=== PATIENT | female | born 1965 | race Caucasian/White ===

== ENCOUNTER → 2020-03-28 12:22 | Outpatient (CLI) | payer OTHER, SELFPAY ==
--- NOTE | ~2020-03-28 | MR_ITS ---
EXAMINATION: MR shoulder RT w con DATE: 03/28/2020 14:03 INDICATION: Injury of glenoid labrum. TECHNIQUE: Magnetic resonance imaging (MRI) of the right shoulder was performed without intravenous c ontrast after intra-articular injection of contrast (MR arthrogram). Sequences included axial T1-weig hted FS FSE and T2-weighted FS FSE, coronal-oblique T1-weighted FS FSE and T2-weighted FS FSE, sagitt al-oblique T1-weighted FSE and T2-weighed FS FSE, and ABER T1-weighted FS FSE. COMPARISON: None. FINDINGS: Coracoacromial arch: The acromion undersurface is curved in morphology (type II). There is mild acromioclavicular joint os teoarthritis. There is contrast in the subacromial/subdeltoid bursa. Rotator cuff: There is a full-thickness tear of supraspinatus tendon measuring 11 mm anterior to posterior by 9 mm proximal to distal. There is mild infraspinatus tendinopathy. Teres minor tendon is normal. There is moderate subscapularis tendinopathy. There is a small interstitial tear of distal subscapularis tendo n. Biceps tendon and glenoid labrum: Biceps tendon is in bicipital groove. Intra-articular biceps tendon is normal. There is a tear of sup erior labrum from 10:00 to 12:00 (SLAP tear). Fluid: The glenohumeral joint is well distended by contrast. Bones/cartilage: Glenoid cartilage is normal. Humeral head cartilage is normal. IMPRESSION: 1. Full-thickness rotator cuff tear. 2. SLAP tear. 3. Mild acromioclavicular joint osteoarthritis. Reviewed, dictated and finalized at location A.
--- NOTE | ~2020-03-28 | XR_ITS ---
EXAMINATION: XR fl inj shoulder RT - MR/CT EXAM DATE: 03/28/2020 13:32 INDICATION: Right shoulder pain radiating down arm. TECHNIQUE: A time-out was performed to verify the patient's name, date of , and procedure to b e performed. The procedure including the risks, benefits and alternatives were discussed with the pat ient. Risks discussed included bleeding and infection. The patient understood the risks and agreed to proceed. The skin overlying the right shoulder joint was prepped and draped in usual sterile fashion . Anesthetic was administered with 2 milliliters 1% lidocaine subcutaneously. A 22 G needle was adv anced under fluoroscopic guidance into the joint. A total of 12 mL of 1:200 of 529 mg/mL Multihance, 1:4 lidocaine, and 1:4 Omnipaque 240 was instilled. The needle was removed and the entry site was cleaned and dressed. There were no immediate complications. The DAP for this procedure was 0.1 Gycm 2. The procedure was performed on 03/28/2020. FINDINGS: Real-time fluoroscopy demonstrates the needle and contrast in the right shoulder joint. IMPRESSION: Successful right shoulder joint injection. Reviewed, dictated and finalized at location B.
== END ==
PROVIDERS: Visit Provider Internal Medicine
DX: S43.431A Superior glenoid labrum lesion of right shoulder, initial encounter (principal); X58.XXXA Exposure to other specified factors, initial encounter; M19.011 Primary osteoarthritis, right shoulder; M75.101 Unspecified rotator cuff tear or rupture of right shoulder, not specified as traumatic
CPT/HCPCS: 23350; 73222; 77002; A9577; Q9966

== ENCOUNTER 2020-08-26 15:52 | Outpatient (CLI) | payer OTHER, SELFPAY ==
--- NOTE | ~2020-08-26 | MM_ITS ---
EXAMINATION: MM screening [facility] BI w luz maria HISTORY: Screening mammogram TECHNIQUE: Craniocaudal and mediolateral oblique 3-D tomosynthesis images were obtained and synthetic 2-D images were generated. CAD analysis was submitted and interpreted. COMPARISON: 06/13/2019, 06/05/2019, 01/18/2019 BREAST PARENCHYMAL COMPOSITION: The breasts are heterogeneously dense, which may obscure small masses . FINDINGS: There is no evidence of suspicious mass, calcification, or architectural distortion to sugg est malignancy in either breast. There has been no suspicious interval change. IMPRESSION: 1. No mammographic evidence of malignancy. 2. Recommend routine screening mammography in one year. BI-RADS Category 1: Negative Reviewed, dictated and finalized at location A. RVISOR SEWER MAINTENANCE
== END 2020-08-26 15:53 | disposition home or self-care (01) ==
LOC: ANHIMG 15:55
PROVIDERS: Visit Provider Obstetrics & Gynecology
DX: Z12.31 Encounter for screening mammogram for malignant neoplasm of breast (principal)
CPT/HCPCS: 77063; 77067

== ENCOUNTER 2021-10-08 16:40 | Outpatient (CLI) | payer OTHER, SELFPAY ==
--- NOTE | ~2021-10-08 | MM_ITS ---
EXAMINATION: MM screening [facility] BI w luz maria HISTORY: Screening TECHNIQUE: Craniocaudal and mediolateral oblique 3-D tomosynthesis images were obtained and synthetic 2-D images were generated. CAD analysis was submitted and interpreted. COMPARISON: Comparison to multiple prior studies sequentially, with oldest reviewed study dated 01/18. BREAST PARENCHYMAL COMPOSITION: The breasts are extremely dense, which lowers the sensitivity of mamm ography FINDINGS: There is no evidence of suspicious mass, calcification, or architectural distortion to sugg est malignancy in either breast. There has been no suspicious interval change. IMPRESSION: 1. No mammographic evidence of malignancy. 2. Recommend routine screening mammography in one year. BI-RADS Category 1: Negative Reviewed, dictated and finalized at location A.
== END 2021-10-08 16:41 | disposition home or self-care (01) ==
LOC: ANHIMG 16:41
PROVIDERS: PCP Family Medicine; Visit Provider Obstetrics & Gynecology
DX: Z12.31 Encounter for screening mammogram for malignant neoplasm of breast (principal)
CPT/HCPCS: 77063; 77067

== ENCOUNTER 2022-08-09 11:13 | Day surgery (SDC) | payer OTHER, SELFPAY ==
[2022-07-29 09:00] VITALS: BMI 23.8
--- NOTE | 2022-08-06 14:35 | P.HP_ITS ---
History of Present Illness History of Present Illness Consent: Risks, benefits, and alternatives have been discussed and questions answered. Patient agrees to proceed with procedure. Chief complaint: Neoplasm Screening Narrative: [place] is a 57 year old female referred for colon cancer screening. Her last colonoscopy was about 5 years ago. Reportedly the prep was not optimal. Review of Systems 2 Review of Systems: All systems reviewed & are unremarkable except as noted in HPI and below PMFSH Surgical History Surgical History History of appendectomy History of hysterectomy History of tonsillectomy Social History Social History Smoking status: Never smoker Alcohol intake: current Drinks per week: 8 Alcohol use details: 3-5 TIMES PER WEEK Substance use: never Substance use type: does not use Living arrangements: with family Spiritual care concerns: No Meds Home Medications and Allergies Home Medications Medication Instructions Recorded Confirmed Type ascorbic acid (vitamin C) 25 mg 25 mg PO DAILY 07/29/22 08/09/22 History tablet calcium-vitamin D3 250 mg-50 unit 1 tablet PO DAILY 07/29/22 08/09/22 History tablet estradiol 1 mg tablet 1 mg PO HS 07/29/22 08/09/22 History meloxicam 15 mg tablet 15 mg PO HS 07/29/22 08/09/22 History multivit,stress formula-zinc tablet 1 tablet PO DAILY 07/29/22 08/09/22 History Allergies Allergy/AdvReac Type Severity Reaction Status Date / Time Penicillins Allergy Unknown RASH Verified 08/09/22 11:36 CHILD Exam Resp: Auscultation: clear to auscultation bilaterally Cardio: Rate: regular rate Rhythm: regular rhythm GI: GI Palp: Yes Soft to palpation and No Tenderness to palpation present (GI) Assessment and Plan Assessment and plan (1) Colon cancer screening: Code(s): Z12.11 - Encounter for screening for malignant neoplasm of colon Status: Acute Assessment and Plan: Colonoscopy with possible biopsy or polypectomy or cautery or injection of substances.
--- NOTE | 2022-08-09 07:27 | P.PNAN_ITS ---
Anes - Initial Pre Proc Eval Procedure: Operation Date: 08/09/22 13:00 Proposed Procedures p Screening Colonoscopy - Celestino Ledesma MD Date/Time: 08/09/22 07:27 Surgeon: Celestino Ledesma MD Pre Op Diagnosis: Neoplasm Screening Patient Data Age: 57 Gender: F Height: 1.68 m Weight: 67 kg Allergies Allergy/AdvReac Type Severity Reaction Status Date / Time Penicillins Allergy Unknown RASH Verified 08/09/22 11:36 CHILD Home Medications Medication Instructions Recorded Confirmed Type ascorbic acid (vitamin C) 25 mg 25 mg PO DAILY 07/29/22 08/09/22 History tablet calcium-vitamin D3 250 mg-50 unit 1 tablet PO DAILY 07/29/22 08/09/22 History tablet estradiol 1 mg tablet 1 mg PO HS 07/29/22 08/09/22 History meloxicam 15 mg tablet 15 mg PO HS 07/29/22 08/09/22 History multivit,stress formula-zinc tablet 1 tablet PO DAILY 07/29/22 08/09/22 History Patient hx anesthesia problems: none Family hx anesthesia problems: none Results Review: All pre-operative results and documents have been reviewed as part of the pre- operative evaluation. [facility] Surgical History Surgical History (Updated 08/09/22 @ 07:28 by Allan Briscoe DO) History of appendectomy History of hysterectomy History of tonsillectomy Social History Social History Smoking status: Never smoker Alcohol intake: current Drinks per week: 8 Alcohol use details: 3-5 TIMES PER WEEK Substance use: never Substance use type: does not use Living arrangements: with family Spiritual care concerns: No Anes - Eval Final PreProcedure Day of Procedure 08/09/22 07:27 Patient weight: normal Heart: regular rate and rhythm Lungs: clear to auscultation and normal air movement Airway: Mallampati scale class II Neurological: alert and oriented Last oral intake: >/= 8 hours ASA classification: II Emergent: no Anesthetic plan: proceed Anesthesia type and monitoring: general GIVS and standard monitoring Results Review: All pre-operative results and documents have been reviewed as part of the pre- operative evaluation. Informed Consent: The patient's anesthetic plan and its attendant risks and benefits were discussed with the patient/family/POA. Questions were solicited and answers provided to the satisfaction of the patient/family/POA.
[2022-08-09 11:37] VITALS: BP 116/79; PULSE 78; RESP 16; TEMP 37.2; O2SAT 99
[2022-08-09] MEDS: LACTATED RINGERS 1,000 ML 150 ML IV CONT (11:46)
[2022-08-09 13:55] VITALS: BP 95/60; PULSE 68; RESP 16; O2SAT 99
[2022-08-09 14:05] VITALS: BP 111/69; PULSE 60; RESP 15; O2SAT 99
[2022-08-09 14:15] VITALS: BP 111/86; PULSE 71; RESP 16; O2SAT 100
--- NOTE | 2022-08-09 14:23 | WPDANESPN ---
Anes - Prog Note Post-Op Date/Time: 08/09/22 14:23 Cardiovascular status: normal Respiratory status: normal Airway patency: baseline Mental status: baseline Post-Op hydration status: normal Vital Signs: Last Vital Signs Temp 37.2 C 08/09/22 11:37 Pulse 60 08/09/22 14:05 Resp 15 08/09/22 14:05 BP 111/69 08/09/22 14:05 Pulse Ox 99 08/09/22 14:05 O2 Del Method Room Air 08/09/22 14:05 Pain Score (VAS): 0 I/O: Intake & Output 08/08/22 08/09/22 08/09/22 23:59 07:59 15:59 Intake Total 500 Balance 500 Post-procedural complaints: none Patient Feedback: Patient satisfied with anesthetic care. Other Findings: Patient vital signs back to baseline. Patient denies nausea and vomiting. Patient's pain under control. Patient OK for discharge.
== END 2022-08-09 14:30 | disposition home or self-care (01) ==
PROVIDERS: PCP Family Medicine; Visit Provider Internal Medicine Gastroenterology
PROC: 0DJD8ZZ Inspection of Lower Intestinal Tract, Via Natural or Artificial Opening Endoscopic (ICD-10-PCS; CPT 45378; principal; 2022-08-09 13:00)
DX: Z12.11 Encounter for screening for malignant neoplasm of colon (principal)
CPT/HCPCS: 45378

== ENCOUNTER 2022-12-13 15:47 | Outpatient (CLI) | payer OTHER, SELFPAY ==
--- NOTE | ~2022-12-13 | MM_ITS ---
EXAMINATION: MM screening [facility] BI w luz maria HISTORY: Screening mammogram TECHNIQUE: Craniocaudal and mediolateral oblique 3-D tomosynthesis images were obtained and synthetic 2-D images were generated. CAD analysis was submitted and interpreted. COMPARISON: October 08, 2021, August 26, 2020 bilateral screening mammogram examinations BREAST PARENCHYMAL COMPOSITION: The breasts are heterogeneously dense, which may obscure small masses . FINDINGS: There is a biopsy marker on the right; history of prior benign right breast biopsy. There i s no evidence of suspicious mass, calcification, or architectural distortion to suggest malignancy in either breast. There has been no suspicious interval change. IMPRESSION: 1. No mammographic evidence of malignancy. 2. Recommend routine screening mammography in one year. BI-RADS Category 1: Negative Reviewed, dictated and finalized at location A.
== END 2022-12-13 15:48 | disposition home or self-care (01) ==
LOC: ANHIMG 15:50
PROVIDERS: PCP Family Medicine; Visit Provider Obstetrics & Gynecology
DX: Z12.31 Encounter for screening mammogram for malignant neoplasm of breast (principal)
CPT/HCPCS: 77063; 77067

== ENCOUNTER 2024-08-11 08:16 | Outpatient (CLI) | payer OTHER, SELFPAY ==
--- NOTE | ~2024-08-11 | MM_ITS ---
EXAMINATION: MM screening [facility] BI w luz maria HISTORY: Screening TECHNIQUE: Craniocaudal and mediolateral oblique 3-D tomosynthesis images were obtained and synthetic 2-D images were generated. CAD analysis was submitted and interpreted. COMPARISON: Comparison to multiple prior studies sequentially, with oldest reviewed study dated 01/18. BREAST PARENCHYMAL COMPOSITION: Dense: The breasts are heterogeneously dense, which may obscure small masses FINDINGS: There is no evidence of suspicious mass, calcification, or architectural distortion to sugg est malignancy in either breast. There has been no suspicious interval change. IMPRESSION: 1. No mammographic evidence of malignancy. 2. Recommend routine screening mammography in one year. BI-RADS Category 1: Negative Reviewed, dictated and finalized at location B. E FINISHER
--- OUTSIDE RECORDS SUMMARY | 2024-08-11 08:19 | XMS_ITS | Clinical Summary ---
Author Organization [facility] Address [address] [place] [address] Care Team Providers Care Load Manager Name Role Phone Chito Cohen MD Primary Care Provider [phone] Bree Vaughan Unavailable [phone] Allergies Active Allergy Reactions Criticality Noted Date Comments Penicillin G Rash Medium 08/16/2013 Childhood rxn Medications estradiol (ESTRACE) 1 mg tablet 06/24/2019 Active meloxicam (MOBIC) 15 mg tablet 06/24/2019 Active glucosamine-cho ndroitin 250-200 mg tablet Take by mouth Active cholecalciferol (VITAMIN D-3) 2000 unit capsule Take 1 capsule (2,000 Units total) by mouth daily 30 capsule 04/11/2020 Active valACYclovir (VALTREX) 1 gram tablet 09/15/2020 Active Active Problems Problem Noted Date Diagnosed Date History of repair of right rotator cuff 07/10/19 21 Abnormal findings on diagnostic imaging of breas t 06/28/2019 Resolved Problems Problem Noted Date Diagnosed Date Resolved Date Biceps tendinitis on right 04/10/2020 0 07/10/2020 Overview (04/10/2020): Added automatically from request for surgery [id number] Complete tear of right rotator cuff 04/04/2020 07/10/2020 Superior glenoid labrum lesi on of right shoulder 04/04/2020 07/10/2020 Biceps tendinitis of right upper extremity 04/04/2020 07/10/2020 Impingement syndrome of right shoulder 04/04/2020 07/10/2020 Surgical History Surgery Date Site/Laterality Comments HYSTERECTOMY ABLATION 07/04/2010 - 07/03/2011 UTERINE SUSPENSION 07/04/1987 - 07/03/1988 BREAST BIOPSY 07/18/2019 Right TONSILLECTOMY Medical History Medical History Date Comments Arthritis Osteoarthritis Infectious viral hepatitis Family History Medical History Relation Name Comments Pancreatic cancer Father Arthritis Other Lung cancer Paternal Grandfather Relation Name Status Comments Father Other Paternal Grandfather Social History Tobacco Use Types Packs/Day Years Used Date Smoking Tobacco: Never Smokeless Tobacco: Never Alcohol Use Standard Drinks/Week Comments Yes 0 (1 standard drink = 0.6 oz pur e alcohol) Comments No Sex and Gender Information Value Date Recorded Sex Assigned at Not on file 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 Gender Identity Not on file Sexual Orientation Not on file Obstetrics History Last Filed Vital Signs Vital Sign Reading Time Taken Comments Blood Pressure 121/84 11/11/2020 8:47 AM CDT Pulse 75 11/11/2020 8:47 AM CDT Temperature 36.6 C (97.9 F) 10/09/2020 8:38 AM CDT Respiratory Rate 18 04/15/2020 1:27 PM CDT Oxygen Saturation 99% 04/15/2020 1:27 PM CDT Inhaled Oxygen Concentration - - Weight 68.9 kg (152 lb) 11/11/2020 8:47 AM CDT Height 168.9 cm (5' 6.5 ) 11/11/2020 8:47 AM CDT Body Mass Index 24.17 11/11/2020 8:47 AM CDT Plan of Treatment Not on file Medical Devices Implanted Type Area Apple Packing Header Device Identifier Shelf Expiration Date Model / Serial / Lot [employer] Ar-2324bcc Swivelock C 4.75mm 19.1mm Closed Eyelet Vent [place] Suture - [id number] Implanted:Qty: 1 on 04/15/2020 by Bryan Jaramillo MD at [facility] Right: Shoulder [employer] 01/01/2024 AR-2324BCC / / [id number] [employer] Ar-3633 Arthrex Fibertak Tape 3 Load Rotator Cuff [place] Suture Sterile Latex Free - [id number] Implanted:Qty: 1 on 04/15/2020 by Bryan Jaramillo MD at [facility] Right: Shoulder [employer] 10/31/2024 AR-3633 / / [id number] [employer] Ar-2324bcc Swivelock C 4.75mm 19.1mm Closed Eyelet Vent [place] Suture - [id number] Implanted:Qty: 1 on 04/15/2020 by Bryan Jaramillo MD at [facility] Right: Shoulder [employer] 01/01/2024 AR-2324BCC / / [id number] [employer] Ar-7535 Fiberlink Arthrex Suturetape 1.3mm Tape Suture Nonabsorbable - [id number] Implanted:Qty: 1 on 04/15/2020 by Bryan Jaramillo MD at [facility] Right: Shoulder [employer] 10/01/2024 AR-7535 / / [id number] Insurance [place] [id number] Care Teams Load Manager Relationship Specialty Start Date End Date Chito Cohen MD [address] [place] [address] PCP - General Family Medicine 06/13/19 Bree Vaughan PA [address] [place] [address] Physician Baggage Checker Orthopedic Surgery 04/15/20
--- OUTSIDE RECORDS SUMMARY | 2024-08-11 08:19 | XMS_ITS | Referral Summary ---
Author Organization [facility] Address [address] [place] [address] Care Team Providers Care Broke Beater Machine Operator Name Role Phone Chito Cohen MD Primary Care Provider [phone] Bree Vaughan Unavailable [phone] Allergies Active Allergy Reactions Criticality Noted Date [...] (04/10/2020): Added automatically from request for surgery [id number] Complete tear of right rotator cuff 04/04/2020 07/10/2020 Superior glenoid labrum lesi on of right shoulder 04/04/2020 07/10/2020 Biceps tendinitis of right upper extremity 04/04/2020 07/10/2020 Impingement syndrome of right shoulder 04/04/2020 07/10/2020 Social History Tobacco Use Types Packs/Day Years Used Date Smoking Tobacco: Never Smokeless Tobacco: Never Alcohol Use Standard Drinks/Week Comments Yes 0 (1 standard drink = 0.6 oz pur e alcohol) Comments No Sex and Gender Information Value Date Recorded Sex Assigned at Not on file 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 Gender Identity Not on file Sexual Orientation Not on file Last Filed Vital Signs Vital Sign Reading [...] on file Medical Devices Implanted Type Area Heel Lift Gouger Device Identifier Shelf Expiration Date Model / Serial / Lot [employer] Ar-2324bcc Swivelock C 4.75mm 19.1mm Closed Eyelet Vent [place] Suture - [id number] Implanted:Qty: 1 on 04/15/2020 by Bryan Jaramillo MD at [facility] Right: Shoulder [employer] 01/01/2024 AR-2324BCC / / [id number] [employer] Ar-3633 Arthrex Fibertak Tape 3 Load Rotator Cuff [place] Suture Sterile Latex Free - [id number] Implanted:Qty: 1 on 04/15/2020 by Bryan Jaramillo MD at [facility] Right: Shoulder [employer] 10/31/2024 AR-3633 / / [id number] [employer] Ar-2324bcc Swivelock C 4.75mm 19.1mm Closed Eyelet Vent [place] Suture - [id number] Implanted:Qty: 1 on 04/15/2020 by Bryan Jaramillo MD at [facility] Right: Shoulder [employer] 01/01/2024 AR-2324BCC / / [id number] [employer] Ar-7535 Fiberlink Arthrex Suturetape 1.3mm Tape Suture Nonabsorbable - [id number] Implanted:Qty: 1 on 04/15/2020 by Bryan Jaramillo MD at [facility] Right: Shoulder [employer] 10/01/2024 AR-7535 / / [id number] Insurance CHOICE PLUS Care Teams Broke Beater Machine Operator Relationship Specialty Start Date End Date Chito Cohen MD [address] [place] [address] PCP - General Family Medicine 06/13/19 Bree Vaughan PA [address] [place] [address] Physician Professional Security Officer Orthopedic Surgery 04/15/20
== END 2024-08-11 08:17 | disposition home or self-care (01) ==
LOC: ANHIMG 08:18
PROVIDERS: PCP Family Medicine; Visit Provider Obstetrics & Gynecology
DX: Z12.31 Encounter for screening mammogram for malignant neoplasm of breast (principal)
CPT/HCPCS: 77063; 77067

== ENCOUNTER 2024-12-24 09:01 | Outpatient (CLI) | payer OTHER, SELFPAY ==
--- NOTE | ~2024-12-24 | XR_ITS ---
EXAM/ PROCEDURE: XR hand LT min 3V - 12/24/2024 9:11 CDT HISTORY: 59 years old Female with M19.049 - Primary osteoarthritis, unspecified hand COMPARISON: None available TECHNIQUE: Four view(s) FINDINGS/ IMPRESSION: There are no fractures or dislocations.Joint space narrowing, subchondral sclerosis, subchondral cyst formation and osteophyte formation, compatible with mild osteoarthritis. Reviewed, dictated and finalized at location A.
--- NOTE | ~2024-12-24 | XR_ITS ---
EXAM/ PROCEDURE: XR hand RT min 3V - 12/24/2024 9:11 CDT HISTORY: 59 years old Female with M19.049 - Primary osteoarthritis, unspecified hand X 6MONTHS COMPARISON: None available TECHNIQUE: Four view(s) FINDINGS/ IMPRESSION: There are no fractures or dislocations.Joint space narrowing, subchondral sclerosis, subchondral cyst formation and osteophyte formation, compatible with mild osteoarthritis. Reviewed, dictated and finalized at location A.
== END 2024-12-24 09:02 | disposition home or self-care (01) ==
PROVIDERS: PCP Family Medicine; Visit Provider Plastic Surgery
DX: M19.042 Primary osteoarthritis, left hand (principal); M19.041 Primary osteoarthritis, right hand
CPT/HCPCS: 73130

== ENCOUNTER 2025-01-10 12:09 | Outpatient (CLI) | payer OTHER, SELFPAY ==
--- NOTE | ~2025-01-10 | US_ITS ---
EXAM: US soft tissue UE RT - 01/10/2025 12:25 CDT History: 59 years old Female with right volar wrist ganglion vs hematoma Technique Real time sonographic imaging of the palpable area of concern, as localized by the patient, was perfo rmed. The patient localized the right lateral wrist. Findings A massmeasuring 0.6 x 0.3 x 0.5 cm cm is seen which corresponds to the palpable lump. Multiple punctate echogenic foci are seen. Impression: 0.6 cm mass in the right lateral wrist Further evaluation should be placed on clinical findings. Reviewed, dictated and finalized at location A. Impression: 0.6 cm mass in the right lateral wrist Further evaluation should be placed on clinical findings.
--- OUTSIDE RECORDS SUMMARY | 2025-01-10 12:13 | XMS_ITS | Referral Summary ---
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 Gender Identity Not on file Sexual Orientation [...] 8:47 AM CDT Height 168.9 cm (5' 6.5) 11/11/2020 8:47 AM CDT Body Mass Index 24.17 11/11/2020 8:47 AM CDT Plan of Treatment Not on file Medical Devices Implanted Type Area Vice President Medical Affairs Device Identifier Shelf Expiration Date Model / Serial / Lot [employer] Ar-2324bcc Swivelock C 4.75mm 19.1mm Closed Eyelet Vent [place] Suture - [id number] Implanted:Qty: 1 on 04/15/2020 by Bryan Jaramillo MD at [facility] Right: Shoulder [employer] 01/01/2024 AR-2324BCC / / [id number] [employer] Ar-3633 Arthrex Fibertak Tape 3 Load Rotator Cuff [place] Suture Sterile Latex Free - [id number] Implanted:Qty: 1 on 04/15/2020 by Bryan Jaramillo MD at [facility] Right: Shoulder [employer] 10/31/2024 AR-3633 / / [id number] [employer] Ar-2324bcc Swivelock C 4.75mm 19.1mm Closed Eyelet Vent [place] Suture - [id number] Implanted:Qty: 1 on 04/15/2020 by Bryan Jaramillo MD at [facility] Right: Shoulder [employer] 01/01/2024 AR-2324BCC / / [id number] [employer] Ar-7535 Fiberlink Arthrex Suturetape 1.3mm Tape Suture Nonabsorbable - [id number] Implanted:Qty: 1 on 04/15/2020 by Bryan Jaramillo MD at [facility] Right: Shoulder [employer] 10/01/2024 AR-7535 / / [id number] Insurance CHOICE PLUS Care Teams Nailhead Puncher Relationship Specialty Start Date End Date Chito Cohen MD [address] [place] [address] PCP - General Family Medicine 06/13/19 Bree Vaughan PA [address] [place] [address] Physician Food Service Ambassador Orthopedic Surgery 04/15/20
--- OUTSIDE RECORDS SUMMARY | 2025-01-10 12:13 | XMS_ITS | Clinical Summary ---
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 Gender Identity Not on file Sexual Orientation [...] on file Medical Devices Implanted Type Area Side Door Worker Device Identifier Shelf Expiration Date Model / Serial / Lot [employer] Ar-2324bcc Swivelock C 4.75mm 19.1mm Closed Eyelet Vent [place] Suture - [id number] Implanted:Qty: 1 on 04/15/2020 by Bryan Jaramillo MD at [facility] Right: Shoulder [employer] 01/01/2024 AR-2324BCC / / [id number] [employer] Ar-3633 Arthrex Fibertak Tape 3 Load Rotator Cuff [place] Suture Sterile Latex Free - [id number] Implanted:Qty: 1 on 04/15/2020 by Bryan Jaramillo MD at [facility] Right: Shoulder [employer] 10/31/2024 AR-3633 / / [id number] [employer] Ar-2324bcc Swivelock C 4.75mm 19.1mm Closed Eyelet Vent [place] Suture - [id number] Implanted:Qty: 1 on 04/15/2020 by Bryan Jaramillo MD at [facility] Right: Shoulder [employer] 01/01/2024 AR-2324BCC / / [id number] [employer] Ar-7535 Fiberlink Arthrex Suturetape 1.3mm Tape Suture Nonabsorbable - [id number] Implanted:Qty: 1 on 04/15/2020 by Bryan Jaramillo MD at [facility] Right: Shoulder [employer] 10/01/2024 AR-7535 / / [id number] Insurance [place] [id number] Care Teams Unix Systems Administrator Relationship Specialty Start Date End Date Chito Cohen MD [address] [place] [address] PCP - General Family Medicine 06/13/19 Bree Vaughan PA [address] [place] [address] Physician Curbstone Setter Orthopedic Surgery 04/15/20
== END 2025-01-10 12:10 | disposition home or self-care (01) ==
PROVIDERS: PCP Family Medicine; Visit Provider Plastic Surgery
DX: R22.31 Localized swelling, mass and lump, right upper limb (principal)
CPT/HCPCS: 76882

== ENCOUNTER 2025-01-29 13:37 | Outpatient (CLI) | payer OTHER, SELFPAY ==
--- NOTE | ~2025-01-29 | MR_ITS ---
EXAMINATION: MR wrist RT wo/w con DATE: 01/29/2025 14:41 INDICATION: Right wrist mass and a SL tear TECHNIQUE: Magnetic resonance imaging (MRI) of the right wrist was performed without and with 14 mL M ultihance intravenous contrast. Sequences performed include axial T1-weighted FSE, T2-weighted FS FSE and T1-weighted FS FSE; coronal T2-weighted FS FSE and T1-weighted FSE; sagittal T1-weighted FSE, sa gittal T2-weighted FS FSE and PD-weighted FSE and postcontrast axial, sagittal and coronal T1-weighte d FS FSE. COMPARISON: None FINDINGS: Intrinsic ligaments: Complete tear of the volar and central membranous components of the scapholunate ligament with at beata st partial tear of the dorsal component which is of doubtful functional integrity given the significa nt widening of the scapholunate interval and secondary dorsal intercalated segment instability (DISI) with dorsal rotation of the lunate resulting in increased scapholunate and lunocapitate angles. Luno triquetral ligament appears to remain grossly intact although there is mild increased signal of the d orsal aspect of the ligament with cystic change at its triquetral attachment. Triangular fibrocartilage complex (TFCC): The foveal side of the central fiber cartilaginous disc of the triangular fibrocartilage demonstrates amorphous mild increased signal suggesting some degeneration without a clearly defined tear. The rad ial, foveal and styloid attachments as well as the dorsal and volar radioulnar ligaments all appear i ntact. There is a small enthesophyte along the volar margin of the tip of the ulnar styloid process. The ulnotriquetral ligament and meniscal homologue are normal. The extensor carpi ulnaris tendon rossi th is normal. Extensor wrist: Extensor tendons of the wrist are normal. Small amount of fluid but without significant enhancing ten osynovitis along the extensor carpi radialis longus and brevis tendon sheaths near the crossover of t he extensor pollicis longus tendon which could be seen with very mild distal intersection syndrome wi th wrist. Flexor wrist: The flexor tendons of the wrist are normal. No abnormality in the carpal tunnel with normal median n erve. Guyon's canal: Guyon's canal including the ulnar nerve and artery are normal. Bones/other: No fracture. 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 Mild osteoarthritis at the remaining joints at the wrist and carpus. There is a dditional cystic change versus erosion at the volar margin of the articular surface of the base of th e first metacarpal near the insertion of the intact appearing anterior oblique ligament of the first carpometacarpal joint. No osteonecrosis or pathologic marrow replacing process. The palpable abnorma lity of concern corresponds to a multilobulated ganglion cyst arising from the volar aspect of the wr ist joint which measures 1.4 cm proximal to distal, 9 mm medial to lateral and to 5 mm in width. There is mild enhancing synovitis at the most prominent at the midcarpal and distal radioulnar joints . IMPRESSION: 1. 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 2. Mild increased fluid without significant enhancing tenosynovitis along the second dorsal compartme nt at the level of the crossover of the extensor pollicis longus tendon which could be seen with a ve ry mild distal intersection syndrome of the wrist. 3. Possible partial tear of the dorsal aspect of the lunotriquetral ligament with mild cystic change versus erosion at its triquetral attachment. There is additional cystic change versus possible erosio n at the base of the first carpometacarpal and at insertion of the intact appearing anterior oblique ligament. Both findings could be degenerative in etiology although also raises possibility of erosion s in the setting of a crystalline arthropathy or inflammatory arthritis. 4. Likely mild degeneration without discrete tear of the central fibrocartilaginous disc of the trian gular fibrocartilage complex near its foveal attachment. Reviewed, dictated and finalized at location A.
== END 2025-01-29 13:38 | disposition home or self-care (01) ==
PROVIDERS: PCP Family Medicine; Visit Provider Plastic Surgery
DX: M19.031 Primary osteoarthritis, right wrist (principal); S63.8X1A Sprain of other part of right wrist and hand, initial encounter; X58.XXXA Exposure to other specified factors, initial encounter
CPT/HCPCS: 73223; A9577

== ENCOUNTER 2025-02-13 10:08 | Outpatient (CLI) | payer OTHER, SELFPAY ==
--- OUTSIDE RECORDS SUMMARY | 2025-02-13 10:22 | XMS_ITS | Clinical Summary ---
Author Organization [facility] Address [address] [place] [address] Care Team Providers Care Computer Tape Librarian Name Role Phone Chito Cohen MD Primary Care Provider [phone] Bree Vaughan Unavailable [phone] Allergies Active Allergy Reactions Criticality Noted Date [...] (04/10/2020): Added automatically from request for surgery [id number] Complete tear of right rotator cuff 04/04/2020 [...] on file Legal Sex Female 2:27 PM [employer] Gender Identity Not on file Sexual Orientation [...] on file Medical Devices Implanted Type Area Medical Care Evaluation Specialist Device Identifier Shelf Expiration Date Model / Serial / Lot [employer] Ar-[id number] Swivelock C 4.75mm 19.1mm Closed Eyelet Vent Lincoln Suture - [id number] Implanted:Qty: 1 on 04/15/2020 by Bryan Jaramillo MD at [facility] Right: Shoulder [employer] 01/01/2024 AR-2324BCC / / [id number] [employer] Ar-3633 Arthrex Fibertak Tape 3 Load Rotator Cuff Lincoln Suture Sterile Latex Free - [id number] Implanted:Qty: 1 on 04/15/2020 by Bryan Jaramillo MD at [facility] Right: Shoulder [employer] 10/31/2024 AR-3633 / / [id number] [employer] Ar-2324bcc Swivelock C 4.75mm 19.1mm Closed Eyelet Vent Lincoln Suture - [id number] Implanted:Qty: 1 on 04/15/2020 by Bryan Jaramillo MD at [facility] Right: Shoulder [employer] 01/01/2024 AR-[id number] / / [id number] [employer] Ar-7535 Fiberlink Ar[employer]rex Suturetape 1.3mm Tape Suture Nonabsorbable - [id number] Implanted:Qty: 1 on 04/15/2020 by Bryan Jaramillo MD at [facility] Right: Shoulder [employer] 10/01/2024 AR-7535 / / [id number] Insurance [facility] H[facility]/PPO Address[place] [address] [facility] H[facility]/PPO Address: [facility] [address] [id number] Care Teams Computer Tape Librarian Relationship Specialty Start Date End Date Chito Cohen MD [address] [place] [address] PCP - General Family Medicine 06/13/19 Bree Vaughan PA [address] [place] [address] Physician Hospice Team Lead Orthopedic Surgery 04/15/20
--- NOTE | 2025-02-13 11:15 | NEURO_ITS ---
Impression: # Complains of right wrist pain radially. ? # Very mild Carpal Tunnel Syndrome. ? # No ulnar neuropathy. ? # Normal needle/EMG exam. ? # Clinical correlation recommended. ?Nerve Conduction Studies ?Stim Site NR Peak (ms) P-T Amp (?V) Site1 Site2 Delta-P (ms) Dist (cm) Flash (m/s) Right Median Anti Sensory (2-3nd Digit) Wrist ? 3.6 33.9 Wrist 2-3nd Digit 3.6 14.0 39 Wrist ? 3.8 33.3 Wrist 2-3nd Digit 3.6 14.0 39 Right Radial Anti Sensory (Base 1st Digit) Wrist ? 1.9 29.5 Wrist Base 1st Digit 1.9 0.0 Right Ulnar Anti Sensory (5th Digit) Wrist ? 2.3 49.4 Wrist 5th Digit 2.3 14.0 61 ?Stim Site NR Onset (ms) O-P Amp (mV) Site1 Site2 Delta-0 (ms) Dist (cm) Flash (m/s) Right Median Motor (Abd Poll Brev) Wrist ? 3.7 4.8 Elbow Wrist 5.1 28.0 55 Elbow ? 8.8 4.1 Right Ulnar Motor (Abd Dig Minimi) Wrist ? 2.5 8.0 A Elbow Wrist 5.2 30.0 58 A Elbow ? 7.7 7.2 B Elbow Wrist 3.7 21.0 57 B Elbow ? 6.2 7.1 F Wave Studies ?NR F-Lat (ms) L-R F-Lat (ms) Right Median (Mrkrs) (Abd Poll Brev) ? 29.57 Right Ulnar (Mrkrs) (Abd Dig Min) ? 28.36 Electromyography ?Side Muscle Nerve Root Ins Act Fibs Amp Dur Recrt Comment Right 1stDorInt Ulnar C8-T1 Nml Nml Nml Nml Nml Right Ext Indicis Radial (Post Int) C7-8 Nml Nml Nml Nml Nml Right Ext Digitorum Radial (Post Int) C7-8 Nml Nml Nml Nml Nml Right BrachioRad Radial C5-6 Nml Nml Nml Nml Nml Right PronatorTeres Median C6-7 Nml Nml Nml Nml Nml Right Abd Poll Brev Median C8-T1 Nml Nml Nml Nml Nml Right ABD Dig Min Ulnar C8-T1 Nml Nml Nml Nml Nml Right FlexPolLong Median (Ant Int) C7-8 Nml Nml Nml Nml Nml Right Abd Poll Long Radial (Post Int) C7-8 Nml Nml Nml Nml Nml
== END 2025-02-13 10:09 | disposition home or self-care (01) ==
PROVIDERS: PCP Family Medicine; Visit Provider Plastic Surgery
DX: G56.01 Carpal tunnel syndrome, right upper limb (principal)
CPT/HCPCS: 95886; 95909